=== PATIENT | female | born 2000 | race Caucasian/White ===

== ENCOUNTER → 2021-06-08 | Outpatient (CLI) | payer OTHER | LOC: COL.RAD 09:14 | DX: N97.9 Female infertility, unspecified (principal) | CPT/HCPCS: Q9967 ==

== ENCOUNTER 2022-03-22 16:53 | Outpatient (CLI) | payer OTHER ==
[~2022-03-22] VITALS: Ht 157.5 cm; Wt 117.3 kg
--- NOTE | 2022-03-22 17:00 | NUR ---
Pt arrived on unit ambulatory and with concerns for decreased movement. Pt reports being able to see her belly move but could not feel the baby moving. Pt denies any contractions, leaking of fluid or vaginal bleeding at this time. EFM and toco monitors started. Vital signs WNL. Dr. Grajeda notified of pt's arrival. See physician notification for details.
[2022-03-22] MEDS ORDERED: PRENATAL (17:13)
--- NOTE | 2022-03-22 17:40 | NUR ---
Pt reports the apple juice and nica crackers helped and she was able to feel the baby move 6 times in 20 minutes and feels comfortable going home at this time.
[2022-03-22 17:44] VITALS: BP 121/57; PULSE 94; TEMP 98.2
== END 2022-03-22 17:55 | disposition home or self-care (01) ==
LOC: LDRO 16:53
DX: O36.8130 Decreased fetal movements, third trimester, not applicable or unspecified (principal); Z3A.35 35 weeks gestation of pregnancy

== ENCOUNTER 2022-04-30 06:05 | Inpatient (IN) | payer OTHER ==
[~2022-04-30] VITALS: Ht 157.5 cm; Wt 120.0 kg
[2022-04-30] VITALS (68 sets, daily range): BP systolic 86–166; BP diastolic 36–98; PULSE 81–117; TEMP 98–99
[~2022-04-30 06:05] MED LIST: PRENATAL
[2022-04-30 07:49] LABS: BASO % 0.3 % (0.0-2.0); EOS # 0.2 K/mm3 (0.0-0.7); EOS % 1.8 % (0.0-4.0); GRAN # 8.4 K/mm3 (1.4-6.5); GRAN % 70.9 % (42.2-75.2); HEMOGLOBIN 12.6 g/dl (12.5-16.0); LYMPH # 2.2 K/mm3 (1.2-3.4); LYMPH % 18.1 % (20.0-51.0); MEAN CELL VOLUME 92 fl (80.0-100.0); MEAN CORPUSCULAR HEMOGLOBIN 32 pg (27-31); MEAN CORPUSCULAR HGB CONC 35 g/dl (33.0-37.0); MONO % 8.3 % (1.7-9.3); PLATELET COUNT 250 K/mm3 (130-400); RED BLOOD COUNT 3.97 M/mm3 (4.10-5.30); REDCELL DISTRIBUTION WIDTH-CV 12.6 % (11.5-14.5)
--- NOTE | 2022-04-30 07:50 | NUR ---
21 YO AT 41.3 WKS GESTATION TO LR 5 FOR INDUCTION OF LABOR FOR POST DATES UNDER SERVICES OF DR BURNHAM. INDUCTION PROCESS EXPLAINED TO PT AND , ALL QUESTIONS ANSWERED. PT DENIES FEELING ANY CTXS, LEAKING FLUID OR VAGINAL BLEEDING AND REPORTS GOOD ACTIVITY TODAY
[2022-04-30 07:54] LABS: HEMATOCRIT 36.4 % (37.0-47.0)
--- NOTE | 2022-04-30 08:21 | NUR ---
0715 - 20G TO LEFT FOREARM, X1 ATTEMPT, BLOOD FOR LABWORK DRAWN WITH IV START, LR INFUSING TO GRAVITY 0725 - PITOCIN STARTED AT 2 MU PER INFUSIN PUMP, SVE 1-/-2
--- NOTE | 2022-04-30 09:02 | NUR ---
0835 - DR BURNHAM TO BEDSIDE, ULTRASOUND TO CONFIRM VERTEX PRESENTATION 0843 - SVE, AROM WITH SMALL AMOUNT OF CLEAR FLUID
--- NOTE | 2022-04-30 13:40 | NUR ---
UP ON BIRTHING BALL, DIFFICULT TO TRACE UTERINE CTXS AT THIS TIME
--- NOTE | 2022-04-30 13:44 | NUR ---
1315 - SCALP ELECTRODE PLACED BY Bibi GORDILLO RN
--- NOTE | 2022-04-30 14:03 | NUR ---
BACK TO BED AFTER VOIDING, STADOL 2MG GIVEN IVP PER PT REQUEST
--- NOTE | 2022-04-30 14:08 | NUR ---
RESTS QUIETLY WITH EYES CLOSED
--- NOTE | 2022-04-30 18:20 | NUR ---
Dr Linares into room, [facility], reviews plan of care. Pt requesting epidural.
--- NOTE | 2022-04-30 19:14 | NUR ---
Guilherme [employer] into room for epidural placement, See anesthesia record. Pt moved to sit on edge of bed.
--- NOTE | 2022-04-30 20:30 | NUR ---
to back for merino placement. SVE presenting part better applied to cervix. Report called to Dr Linares.
--- NOTE | 2022-04-30 21:00 | NUR ---
BP' 80's/50's to 118/67. 2104 Ephedrine 10mg IVPUSH for Bp support
--- NOTE | 2022-04-30 21:26 | NUR ---
Dr Linares into room. SVE as noted. 2127 Dr Linares discusses need for C/S, plan of care. Pitocin gtt off. 2140 To C/S per bed
--- NOTE | 2022-04-30 22:55 | NUR ---
Fundal massage reveals boggy uterus, firms with massage.
--- NOTE | 2022-04-30 23:05 | NUR ---
fundal massage, clots expressed. Total QBL since OR 100ml.
--- NOTE | 2022-04-30 23:10 | NUR ---
Methergine 0.2mg to RAT.
[2022-05-01] VITALS (11 sets, daily range): BP systolic 98–132; BP diastolic 47–70; PULSE 78–109; TEMP 97.8–99.9
[2022-05-01 05:56] LABS: HEMATOCRIT 34.1 % (37.0-47.0)
[2022-05-01] MEDS ORDERED: PERCOCET 325 MG1 TA2 PO (08:16)
[2022-05-01] MEDS ORDERED: IBU600 MG PO (08:16)
--- NOTE | 2022-05-01 09:16 | NUR ---
Initial visit; Parents thanked Safety Sitter for offering congratulations and God's blessings for the of their daughter. Safety Sitter thanked family for choosing our hospital.
[2022-05-02 07:45] VITALS: BP 113/63; PULSE 94; TEMP 98.3
[2022-05-02 12:15] VITALS: BP 107/83
== END 2022-05-02 14:56 | disposition home or self-care (01) | DRG 788 ==
LOC: OB 06:05 → LDR 06:05 → OB 13:41
PROVIDERS: ADMIT Obstetrics & Gynecology
PROC: 10D00Z1 Extraction of Products of Conception, Low, Open Approach (ICD-10-PCS; principal; 2022-04-30)
DX: O48.0 Post-term pregnancy (principal); Z3A.41 41 weeks gestation of pregnancy; Z37.0 Single live birth; O99.214 Obesity complicating childbirth; E66.9 Obesity, unspecified; J45.20 Mild intermittent asthma, uncomplicated; O76 Abnormality in fetal heart rate and rhythm complicating labor and delivery; Z88.8 Allergy status to other drugs, medicaments and biological substances; O99.52 Diseases of the respiratory system complicating childbirth
CPT/HCPCS: J0171; J0595; J0690; J1885; J2210; J2405; J2590; J7120